=== PATIENT | male | born 1965 | race Caucasian/White ===

== ENCOUNTER 2023-10-29 09:48 | Observation (INO) | payer BC, SELFPAY ==
[2023-10-29] VITALS (21 sets, daily range): BP systolic 121–136; BP diastolic 70–81; PULSE 59–78; TEMP 36.3–37.2; O2SAT 95–99; BMI 31.3; BMI 34.6
--- NOTE | 2023-10-29 09:53 | ECG_ITS ---
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
[2023-10-29] MEDS: 0.9 % SODIUM CHLORIDE 1,000 ML 1000 ML IV (10:03)
[2023-10-29 10:07] LABS: Basophils Absolute Auto 0.1 10^3/uL (0.0-0.1); Basophils Percent Auto 0.6 % (0.2-2.0); Eosinophils Absolute Auto 0.2 10^3/uL (0.0-0.7); Eosinophils Percent Auto 1.9 % (0.9-7.0); Hematocrit 42.1 % (42.0-54.0); Hemoglobin 14.1 g/dL (14.0-18.0); Immature Granulocytes Abs Auto 0.04 10^3/uL (0.00-0.03); Immature Granulocytes Pct Auto 0.5 % (0.0-0.5); Lymphocytes Absolute Auto 1.4 10^3/uL (1.2-3.8); Lymphocytes Percent Auto 16.2 % (20.5-60.0); Mean Corpuscular HGB Conc 33.5 g/dL (29.9-35.2); Mean Corpuscular Hemoglobin 30.5 pg (25.9-34.0); Mean Corpuscular Volume 90.9 fL (80.0-94.0); Mean Platelet Volume 9.8 fL (9.5-13.5); Monocytes Absolute Auto 0.5 10^3/uL (0.3-0.8); Monocytes Percent Auto 5.3 % (1.7-12.0); Neutrophils Absolute Auto 6.6 10^3/uL (1.4-6.5); Neutrophils Percent Auto 75.5 % (43.0-75.0); Platelet Count 228 10^3/uL (150-450); Red Blood Count 4.63 10^6/uL (4.70-6.10); White Blood Count 8.7 10^3/uL (4.0-11.0)
--- NOTE | 2023-10-29 10:09 | XR_ITS ---
The [address] [address] Patient Name: TIA VEE MRN: [id number] date: 1965 Sex: M Assigned Patient Location: ER Current Patient Location: ER Accession/Order Number: [id number] Exam Date: 10/29/2023 10:22 Report Date: 10/29/2023 10:39 At the request of: JIMMIE HASSAN Procedure: XR chest 1V EXAM: Chest x-ray HISTORY: . sob . COMPARISON: None. TECHNIQUE: Single view of the chest FINDINGS: Heart and vascularity are unremarkable. Lungs are free of focal infiltrates. Grossly no bony abnormality is appreciated. EKG leads overlie the chest. XR/XR chest 1V IMPRESSION: No acute heart or lung disease identified. Electronically authenticated by: DAVE BAILEY Date: 10/29/2023 10:39
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
--- NOTE | 2023-10-29 10:09 | CT_ITS ---
The [address] [address] Patient Name: TIA VEE MRN: [id number] date: 1965 Sex: M Assigned Patient Location: ER Current Patient Location: ED.MAIN Accession/Order Number: [id number] Exam Date: 10/29/2023 10:24 Report Date: 10/29/2023 10:47 At the request of: JIMMIE HASSAN Procedure: CT head/brain wo con HEAD CT WITHOUT CONTRAST: 10/29/2023 10:24 AM EDT Clinical Data: headache Comparison: No previous Unenhanced axial data from base to vertex. INTRA-AXIAL: No acute hemorrhage. No acute infarction is evident. EXTRA-AXIAL: No acute hemorrhage. No focal fluid collection. BRAIN VOLUME: Unremarkable for age. VENTRICLES: No hydrocephalus PARANASAL SINUSES: Significant opacification far superior aspects included portion left maxillary antrum. Significant opacification of the ethmoids bilaterally. MASTOIDS: Clear. CALVARIUM: No acute finding. EXTRACALVARIAL: No acute findings CT/CT head/brain wo con IMPRESSION: 1. No evidence of acute intracranial process on this unenhanced study as described. 2. Paranasal sinus disease All CT scans at this facility use dose modulation, iterative reconstruction, and/or weight based dosing when appropriate to reduce radiation dose to as low as reasonably achievable. Electronically authenticated by: RODRIGUEZ RADER Date: 10/29/2023 10:47
[2023-10-29 10:20] LABS: Magnesium 1.9 mg/dL (1.8-2.4)
[2023-10-29 10:29] LABS: Alanine Aminotransferase 25 U/L (16-63); Albumin Level 3.4 g/dL (3.4-5.0); Alkaline Phosphatase 56 U/L (46-116); Anion Gap 10.9; Aspartate Amino Transferase 22 U/L (15-37); BUN Creatinine Ratio 8.8; Bilirubin Total 0.8 mg/dL (0.2-1.0); Calcium 8.4 mg/dL (8.5-10.1); Carbon Dioxide 27.6 mmol/L (21.0-32.0); Chloride 103 mmol/L (98-107); Estimated GFR (African America 55 (>=60); Estimated GFR (Non-African Ame 45 (>=60); Globulin 3.3 g/dL; Glucose 105 mg/dL (74-106); Potassium 4.5 mmol/L (3.5-5.1); Sodium 137 mmol/L (136-145); Total Protein 6.7 g/dL (6.4-8.2); Troponin I High Sensitivity 4.4 pg/mL (4.0-76.1)
[2023-10-29 10:35] LABS: D Dimer 0.54 mg/L FEU (<=0.59)
[2023-10-29 10:40] LABS: Bilirubin Urine NEGATIVE (NEGATIVE); Blood Urine NEGATIVE (NEGATIVE); Clarity Urine CLEAR (CLEAR); Color Urine LT. YELLOW (YELLOW); Glucose Urine UA NEGATIVE (NEGATIVE); Ketones Urine NEGATIVE (NEGATIVE); Leukocyte Esterase Urine NEGATIVE (NEGATIVE); Nitrite Urine NEGATIVE (NEGATIVE); Protein Urine NEGATIVE (NEG/TRACE); Urobilinogen Urine 0.2 EU/dL (0.2-1.0)
[2023-10-29 10:42] LABS: Urine Microscopic Indicated NO
--- NOTE | 2023-10-29 11:14 | CA_ITS ---
Patient Name: TIA VEE MR#: [id number] : 1965 Exam Date: 10/30/2023 Ordering Doctor: SHAIKH Mary GOSS . ECHOCARDIOGRAM REPORT PROCEDURE: CA ECHO DOPPLER COMPLETE INDICATIONS: Syncope COMPARISON: None. DESCRIPTION: COMPLETE ECHOCARDIOGRAM Real-time transthoracic echocardiography with 2D, M-mode, spectral and color flow Doppler performed. QUALITY: Technical quality was good. 67 , 200#, BP 109/67 LEFT VENTRICLE: Normal chamber size. Thickened septal wall. LV EF: Global left ventricular systolic function is difficult to assess but appears preserved; visually estimated ejection fraction is 55 to 60%. Unable to assess regional wall motion abnormalities. DIASTOLIC: Normal diastolic function. ATRIAL SEPTUM: Visually appears intact. LEFT ATRIUM: Normal chamber size. RIGHT ATRIUM: Normal chamber size. RIGHT VENTRICLE: Poorly seen. Normal chamber size. Normal right ventricular systolic function. TRICUSPID VALVE: Normal mobility and thickness. No stenosis with no regurgitation. MITRAL VALVE: Normal mobility and thickness. No evidence of mitral valve stenosis. There is no mitral annular calcification. No mitral regurgitation. AORTIC VALVE: Normal trileaflet appearance. No visible sclerosis. Normal leaflet mobility. No evidence of aortic valve stenosis. No aortic regurgitation. AORTIC ROOT: Normal diameter and appearance. PULMONIC VALVE: Not well visualized. No stenosis. No regurgitation. PERICARDIUM: Anterior free space; trivial effusion versus fat pad. IVC: Collapses with inspirations. IVC is normal in size. CONCLUSION: 1. Global left ventricular systolic function is difficult to assess but appears preserved; visually estimated ejection fraction is 55 to 60% 2. The right ventricle is poorly seen but appears normal in size and systolic function 3. Normal diastolic function 4. No significant valvular abnormalities 5. Anterior free space; trivial effusion versus fat pad Adult Echocardiography Procedure Report Left Ventricle LVEDD (3.7 - 5.6 cm): 4.32 cm LVESD (2.2 - 4.0 cm): 3.06 cm LVIVS thickness (0.6 - 1.2 cm): 1.23 cm LVPW thickness (0.5 - 1.0 cm): 1.05 cm e': 0.12 m/s E - e': 5.99 LVOT Max Gradient: 3.20 mm[Hg] LVOT Area (cm2): 0.89 m/s Peak Velocity (LVOT): 0.89 m/s Mean Velocity (LVOT): 0.59 m/s LVOT Diameter 1.97 cm Left Atrium LA Volume Index (2D A2C): 22.64 ml/m2 Left Atrium Systolic Dimension: 3.48 cm Mitral Valve MV E to A Ratio: 1.19 Mitral Valve A-Wave Peak Velocity: 0.60 m/s Mitral Valve E-Wave Peak Velocity: 0.71 m/s Right Ventricle Aorta AO Root Diam: 3.13 cm Aortic Valve AoV Area (Peak Freeman): 2.17 cm2, 2.17 cm2 AoV Area (VTI): 2.33 cm2, 2.33 cm2 Peak Velocity(Antegrade Flow): 1.26 m/s Peak Gradient(Antegrade Flow): 6.36 mm[Hg] Mean Velocity(Antegrade Flow): 0.84 m/s Mean Gradient(Antegrade Flow): 3.25 mm[Hg] Velocity Time Integral: 28.80 cm Tricuspid Valve Pulmonic Valve Peak Velocity: 0.77 m/s Peak Gradient: 2.19 mm[Hg], 2.54 mm[Hg] Right Atrium Right Atrium Systolic Pressure: 42.92 ml, 42.92 ml Dictated by: Adin Pearce M.D. on 11/01/2023 at 10:52 Approved by: Adin Pearce M.D. on 11/01/2023 at 10:55
[2023-10-29 11:30] LABS: Amphetamine Screen Urine NEGATIVE (NEGATIVE); Barbiturates Screen Urine NEGATIVE (NEGATIVE); Benzodiazepines Screen Urine NEGATIVE (NEGATIVE); Buprenorphine Screen Urine NEGATIVE (NEGATIVE); Cannabinoid Screen Urine NEGATIVE (NEGATIVE); Cocaine Screen Urine NEGATIVE (NEGATIVE); Methadone Screen Urine NEGATIVE (NEGATIVE); Methamphetamines Screen Urine NEGATIVE (NEGATIVE); Opiate Screen Urine NEGATIVE (NEGATIVE); Oxycodone Screen Urine NEGATIVE (NEGATIVE); Phencyclidine Screen Urine NEGATIVE (NEGATIVE); Tricyclic Antidepressant Urine NEGATIVE (NEGATIVE)
[2023-10-29 11:49] LABS: Troponin I High Sensitivity 4.5 pg/mL (4.0-76.1)
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
[2023-10-29] MEDS: LACTATED RINGER'S SOLUTION 1,000 ML 125 ML IV ×2 (13:37→21:34)
[2023-10-29 15:41] LABS: Troponin I High Sensitivity <4.0 pg/mL (4.0-76.1)
[2023-10-29] MEDS: ENOXAPARIN SODIUM 40 MG/0.4 ML SYRINGE SUBQ (20:25)
[2023-10-30] VITALS (10 sets, daily range): BP systolic 109–130; BP diastolic 67–79; PULSE 56–75; TEMP 36.5–36.7; O2SAT 94–96
[2023-10-30 05:22] LABS: Basophils Percent Auto 0.4 % (0.2-2.0); Eosinophils Absolute Auto 0.4 10^3/uL (0.0-0.7); Eosinophils Percent Auto 5.1 % (0.9-7.0); Hematocrit 40.1 % (42.0-54.0); Hemoglobin 13.2 g/dL (14.0-18.0); Immature Granulocytes Abs Auto 0.03 10^3/uL (0.00-0.03); Immature Granulocytes Pct Auto 0.4 % (0.0-0.5); Lymphocytes Absolute Auto 2.1 10^3/uL (1.2-3.8); Lymphocytes Percent Auto 28.5 % (20.5-60.0); Mean Corpuscular HGB Conc 32.9 g/dL (29.9-35.2); Mean Corpuscular Hemoglobin 29.9 pg (25.9-34.0); Mean Corpuscular Volume 90.7 fL (80.0-94.0); Monocytes Absolute Auto 0.6 10^3/uL (0.3-0.8); Monocytes Percent Auto 7.6 % (1.7-12.0); Neutrophils Absolute Auto 4.3 10^3/uL (1.4-6.5); Platelet Count 204 10^3/uL (150-450); Red Blood Count 4.42 10^6/uL (4.70-6.10); Red Cell Distribution Width 13.2 % (11.0-15.0); White Blood Count 7.5 10^3/uL (4.0-11.0)
[2023-10-30] MEDS: LACTATED RINGER'S SOLUTION 1,000 ML 125 ML IV (05:30)
[2023-10-30 05:58] LABS: Alanine Aminotransferase 19 U/L (16-63); Albumin Globulin Ratio 0.9; Albumin Level 2.9 g/dL (3.4-5.0); Alkaline Phosphatase 46 U/L (46-116); Aspartate Amino Transferase 17 U/L (15-37); BUN Creatinine Ratio 7.9; Bilirubin Total 1.1 mg/dL (0.2-1.0); Calcium 8.5 mg/dL (8.5-10.1); Chloride 105 mmol/L (98-107); Estimated GFR (African America >60 (>=60); Estimated GFR (Non-African Ame 53 (>=60); Globulin 3.1 g/dL; Glucose 89 mg/dL (74-106); Sodium 139 mmol/L (136-145)
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
--- NOTE | 2023-10-30 10:45 | CM.NOTE ---
Rounds made with Dr. Ray, discussed possible discharge to home this afternoon. Pt will have cardiac echo prior to discharge.
--- NOTE | 2023-10-30 13:04 | SWNOTE1 ---
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 He will be discharged today. [employer] called and set up trips for pt to return to his truck in [place]. Trips will be here between 3:15-3:45. YEMI let pt know. He has been in contact with the [employer], at this time our hospitalist will not clear him to drive. Hospitalist will want him cleared by pt's own PCP.
--- NOTE | 2023-11-01 14:35 | CM.DCFOLLOWU ---
1st attempt 11/01/23, no answer
== END 2023-10-30 15:38 | disposition home or self-care (01) ==
LOC: ER 11:15 → MS 12:58
PROVIDERS: Admitting Provider Internal Medicine; Emergency Provider Emergency Medicine; Visit Provider Internal Medicine
DX: R55 Syncope and collapse (principal); N17.9 Acute kidney failure, unspecified
CPT/HCPCS: 36415; 70450; 71045; 80053; 80307; 81003; 83735; 84484; 85025; 85378; 86850; 86900; 86901; 93005; 93306; 94761; 96360; 96361; 96372; 99285; G0378